=== PATIENT | female | born 1975 | race Caucasian/White ===

== ENCOUNTER → 2016-12-24 | Outpatient (CLI) | payer BC ==
[~2016-12-24] MED LIST: ASPI81TA28 PO; CETI10TA84 PO; CHOL100010 PO; CYAN100020 PO; FENO50CA2 PO; GADOXETATE DISODIUM (NON-WT BASED PROCEDURE) IV PRN; LEVO125T72 PO; MELA1CAP9 PO; OMEG-54 PO; PRVC10 PO; SERT25TA PO
--- NOTE | 2016-12-24 18:23 | DIAGNOSTIC IMAGING REPORT ---
MRI LIVER COMBO CLINICAL HISTORY: Hepatic cyst. COMPARISON STUDY: MRI of the liver June 09, 2014 and right upper quadrant ultrasound July 30, 2014. TECHNIQUE: Utilizing a 1.5 Linda magnet and dedicated coil, multiplanar, multiecho imaging of the abdomen was performed pre and postcontrast administration. Post contrast imaging was performed utilizing dynamic enhancement. Injection of 10 cc of Eovist IV was uneventful. 20 minute delayed phase imaging was performed. FINDINGS: Liver morphology is normal. The previously described T2 hyperintense nonenhancing lesion along the undersurface of the liver within the cholecystectomy bed on MRI of June 09, 2014 has decreased in size. This now measures 0.8 cm. It previously measured 1.5 cm. There are no suspicious hepatic lesions. The spleen, adrenal glands and pancreas are normal with the exception of pancreas divisum. There is no biliary ductal dilatation status post cholecystectomy. No common bile duct calculi are identified. There are several small renal cysts. There is no abdominal lymphadenopathy or ascites. There is no peripancreatic infiltration. A tiny T2 hyperintense nonenhancing focus along the capsule of the posterior right hepatic lobe has decreased in size as well. Loss of signal within the liver on out of phase sequence is noted. IMPRESSION: 1. Interval decrease in size of the previously described 0.8 cm nonenhancing T2 hyperintense lesion along the undersurface of the liver within the cholecystectomy bed. Therefore, this finding is benign and could reflect a seroma or cyst. 2. No suspicious hepatic lesions. 3. Fatty liver. Electronically signed by: Agus Cope M.D. 12/24/2016 6:22 PM Dictated Date/Time: 12/24/2016 6:09 PM
== END | disposition home or self-care (01) ==
LOC: C.MRI 16:00
PROVIDERS: ATTEND Nurse Practitioner Family
DX: K76.89 Other specified diseases of liver (principal); K76.0 Fatty (change of) liver, not elsewhere classified